=== PATIENT | female | born 1960 | race Hispanic/Latino ===

== ENCOUNTER 2018-07-08 15:58 | Emergency (ER) | payer OTHER ==
[2018-07-08 16:10] VITALS: BMI 24.9
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
[2018-07-08 16:44] VITALS: BP 102/69
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
[2018-07-08 18:41] VITALS: PULSE 97; RESP 18; TEMP 97.9; O2SAT 98
== END 2018-07-08 17:30 | disposition home or self-care (01) ==
LOC: ED 15:58
DX: S93.401A Sprain of unspecified ligament of right ankle, initial encounter (principal); V49.49XA Driver injured in collision with other motor vehicles in traffic accident, initial encounter; W22.11XA Striking against or struck by driver side automobile airbag, initial encounter; Y92.488 Other paved roadways as the place of occurrence of the external cause